=== PATIENT | female | born 1935 | race Caucasian/White ===

== ENCOUNTER 2017-12-28 08:36 | Emergency (ER) | payer MEDICARE ==
--- NOTE | 2017-12-28 10:02 | CT ---
CT BRAIN PERFORMED WITHOUT CONTRAST ENHANCEMENT: HISTORY: The patient fell out of bed and hit head. FINDINGS: There is generalized ventricular and sulcal prominence. There are no signs of intracerebral hemorrha ge or extraaxial fluid collections. The mastoid air cells and visualized sinuses are clear. IMPRESSION: No acute intracranial abnormalities. POS: [facility]
--- NOTE | 2017-12-28 10:06 | CT ---
CT CERVICAL SPINE WITHOUT CONTRAST: HISTORY: Fell out of bed this morning and hit forehead. Neck pain. COMPARISON: None. TECHNIQUE: Multiple contiguous axial images were obtained in a CT of the cervical spine without contrast. Sagit jesus and coronal reformats were performed. FINDINGS: The vertebral bodies demonstrate normal height and alignment without fracture or subluxation. Mild d egenerative changes are seen. No prevertebral soft tissue swelling is seen. The posterior facets are well aligned. Normal alignment of the skull base with the cervical spine is seen. IMPRESSION: No evidence of acute osseous abnormality of the cervical spine. POS: [facility]
--- NOTE | 2017-12-28 10:08 | CT ---
CT THORACIC SPINE WITHOUT CONTRAST: HISTORY: Fell out of bed and hit forehead. Back pain. COMPARISON: None. TECHNIQUE: Multiple contiguous axial images were obtained in a CT of the thoracic spine without contrast. Sagit jesus and coronal reformats were performed. FINDINGS: Diffuse osteopenia is seen. There is wedging of some of the mid thoracic and vertebral bodies, which is likely chronic. No acute fracture or subluxation is seen of any of the thoracic vertebral bodies . Atherosclerotic calcifications are seen in the aorta. There is a large hiatal hernia. The other pre vertebral and paraspinal soft tissues are unremarkable. IMPRESSION: No evidence of acute osseous abnormality of the thoracic spine. POS: [facility]
--- NOTE | 2017-12-28 10:09 | RAD ---
CHEST ONE VIEW: HISTORY: Fell out of bed. Injury. COMPARISON: Radiograph from 2011. FINDINGS: The lungs are clear. No pneumothorax or effusion. The cardiac silhouette and mediastinal contour ar e within normal limits. Please see CT spine for further findings. IMPRESSION: No acute intrathoracic abnormality. POS: [facility]
== END 2017-12-28 10:25 | disposition home or self-care (01) ==
LOC: MADERS 08:36
DX: S16.1XXA Strain of muscle, fascia and tendon at neck level, initial encounter (principal); S29.012A Strain of muscle and tendon of back wall of thorax, initial encounter; I25.10 Atherosclerotic heart disease of native coronary artery without angina pectoris; I10 Essential (primary) hypertension; Z79.899 Other long term (current) drug therapy; Z79.82 Long term (current) use of aspirin; W06.XXXA Fall from bed, initial encounter
CPT/HCPCS: 70450; 71045; 72125; 72128

== ENCOUNTER 2019-05-11 11:23 | Emergency (ER) | payer MEDICARE ==
--- NOTE | 2019-05-11 12:34 | CT ---
CT Brain WO Con History: Fall. Head injury. Comparison: 12/28/2017. Findings: There is no evidence of acute intracranial hemorrhage or infarct. The ventricles appear nor mal in size, shape and position. Diffuse cortical atrophy and mild chronic ischemic small vessel disease. There is no mass effect or shift of midline structures. Visualized paranasal sinuses remain well-aerated. Impression: Chronic-type findings are stable. No acute intracranial abnormalities are demonstrated.
--- NOTE | 2019-05-11 12:37 | CT ---
CT Cervical Spine WO Con History: Neck injury Comparison: 12/28/2017. Findings: Vertebral body heights and alignment are maintained. Multilevel disc space narrowing and os teophytosis. Cervicothoracic junction is intact. No acute fracture or dislocation. Calcification at the carotid bifurcations and aortic arch. Impression: Degenerative changes cervical spine. No acute osseous abnormalities are demonstrated. Atherosclerosis.
--- NOTE | 2019-05-11 12:42 | CT ---
CT lumbar spine noncontrast HISTORY: Fall. Back injury. FINDINGS: Very mild physiologic wedging of the T12 vertebral body. Chronic appearance. There is parti al sacralization of the L5 segment. No acute fracture or dislocation evident. There is disc space narrowing and gas disc phenomenon at ea ch level. Osteophytosis of the vertebral bodies and facets. Minimal degenerative retrolisthesis at the L1-2 and L2-3 levels. No severe central canal stenoses evident. Significant foraminal stenoses ev ident bilaterally at the L3-4 and L4-5 levels. Calcification within the arterial structures. Osseous structures are demineralized. Hiatal hernia par tially visualized. Diverticula of the colon without evidence of inflammation. IMPRESSION: Degenerative changes lumbar spine without acute osseous abnormality evident. Foraminal stenoses at the L3-4 and L4-5 levels. Clinical correlation regarding the L3 and L4 dermatom e is required. Osteoporosis. Atherosclerosis. Hiatal hernia. Diverticulosis.
--- NOTE | 2019-05-11 12:45 | CT ---
CT pelvis noncontrast HISTORY: Pelvic injury. FINDINGS: Sacral and iliac are intact. Hips unremarkable. No acute fracture or dislocation. Mild dege nerative changes throughout. More prominent degenerative changes lower lumbar spine better detailed on dedicated CT lumbar spine exam. Diverticula arise from the colon without evidence of inflammation. IMPRESSION: No acute osseous abnormalities are demonstrated. Diverticulosis.
== END 2019-05-11 13:13 | disposition home or self-care (01) ==
LOC: MADERS 11:23
DX: S39.012A Strain of muscle, fascia and tendon of lower back, initial encounter (principal); S16.1XXA Strain of muscle, fascia and tendon at neck level, initial encounter; S00.03XA Contusion of scalp, initial encounter; I10 Essential (primary) hypertension; I25.10 Atherosclerotic heart disease of native coronary artery without angina pectoris; Z91.81 History of falling; Z79.899 Other long term (current) drug therapy; Z79.82 Long term (current) use of aspirin; W18.30XA Fall on same level, unspecified, initial encounter
CPT/HCPCS: 70450; 72125; 72131; 72192

== ENCOUNTER 2019-07-03 09:34 | Emergency (ER) | payer MEDICARE ==
[2019-07-03 10:29] LABS: #Lymphocytes 1.4 thou/uL (1.20-3.40); #Monocytes 0.3 thou/uL (0.11-0.59); #Neutrophils 2.7 thou/uL (1.40-6.50); %Basophils 0.9 % (0.0-1.0); %Eosinophils 0.3 % (0.0-10.0); %Lymphocytes 31.2 % (21.0-51.0); %Monocytes 5.9 % (0.0-10.0); %Neutrophils 61.6 % (42.0-75.0); Hemoglobin 11.3 g/dL (12.0-16.0); Mean Corpuscular HGB CONC 31.5 g/dL (32.0-36.0); Mean Corpuscular Hemoglobin 30.6 pg (27.0-31.0); Mean Corpuscular Volume 97.2 fL (78.0-98.0); Mean Platelet Volume 5.2 fL (7.4-10.4); Platelet Count 213 thou/uL (130-400); RBC Distribution Width 13.2 % (11.5-14.5); White Blood Cell (WBC) Count 4.5 thou/uL (4.8-10.8)
[2019-07-03 10:43] LABS: ALT (SGPT) 12 U/L (8-55); AST (SGOT) 14 U/L (5-34); Albumin 3.8 g/dL (3.4-4.8); Alkaline Phosphatase 55 U/L (40-110); Anion Gap 13 mmol/L (10-20); BUN (Urea Nitrogen) 17 mg/dL (9.8-20.1); Bilirubin, Total 0.6 mg/dL (0.2-1.2); Calc. Creatinine Clearance 0 mL/min (70-130); Calcium 8.6 mg/dL (7.8-10.44); Carbon Dioxide 24 mmol/L (23-31); Chloride 108 mmol/L (98-107); Estimated GFR-MDRD 65; Globulin 2.3 g/dL (2.4-3.5); Glucose 107 mg/dL (83-110); Potassium 3.9 mmol/L (3.5-5.1); Protein, Total 6.1 g/dL (6.0-8.3); Sodium 141 mmol/L (136-145)
== END 2019-07-03 12:00 | disposition home or self-care (01) ==
LOC: MADERS 09:34
DX: I10 Essential (primary) hypertension (principal); R11.0 Nausea; I25.10 Atherosclerotic heart disease of native coronary artery without angina pectoris; Z79.82 Long term (current) use of aspirin; Z79.899 Other long term (current) drug therapy
CPT/HCPCS: 36415; 80053; 84484; 85025; 93005

== ENCOUNTER 2019-11-09 05:07 | Emergency (ER) | payer MEDICARE ==
[2019-11-09] MEDS ORDERED: Aspirin Chewable 81 MG TAB ONE (06:57)
[2019-11-09 07:04] LABS: #Basophils 0.1 thou/uL (0.0-0.2); #Lymphocytes 2.3 thou/uL (1.20-3.40); #Monocytes 0.5 thou/uL (0.11-0.59); #Neutrophils 3.5 thou/uL (1.40-6.50); %Eosinophils 0.4 % (0.0-10.0); %Lymphocytes 36.4 % (21.0-51.0); %Monocytes 7.8 % (0.0-10.0); %Neutrophils 54.3 % (42.0-75.0); Bilirubin Small (Negative); Blood, Urine Negative (Negative); Clarity Clear (Clear); Glucose, Urine (Dipstick) Negative (Negative); Ketone, Urine Negative (Negative); Leukocyte Negative (Negative); Mean Corpuscular HGB CONC 31.1 g/dL (32.0-36.0); Mean Corpuscular Hemoglobin 31.1 pg (27.0-31.0); Mean Platelet Volume 5.8 fL (7.4-10.4); Nitrite Negative (Negative); Platelet Count 209 thou/uL (130-400); Protein, Urine (Dipstick) 30 mg/dL (Neg-Trace); RBC Distribution Width 13.4 % (11.5-14.5); Red Blood Cell (RBC) Count 3.55 mill/uL (4.20-5.40); White Blood Cell (WBC) Count 6.3 thou/uL (4.8-10.8)
[2019-11-09 07:12] LABS: Specific Gravity, Urine 1.037 (1.002-1.036)
[2019-11-09 07:21] LABS: ALT (SGPT) 13 U/L (8-55); AST (SGOT) 14 U/L (5-34); Albumin 3.8 g/dL (3.4-4.8); Alkaline Phosphatase 42 U/L (40-110); Anion Gap 14 mmol/L (10-20); BUN (Urea Nitrogen) 29 mg/dL (9.8-20.1); Bilirubin, Total 0.6 mg/dL (0.2-1.2); Calc. Creatinine Clearance 0 mL/min (70-130); Calcium 8.4 mg/dL (7.8-10.44); Carbon Dioxide 22 mmol/L (23-31); Chloride 108 mmol/L (98-107); Estimated GFR-MDRD 53; Globulin 2.3 g/dL (2.4-3.5); Glucose 113 mg/dL (83-110); Potassium 4.2 mmol/L (3.5-5.1); Protein, Total 6.1 g/dL (6.0-8.3); Sodium 140 mmol/L (136-145)
[2019-11-09 07:27] LABS: Bacteria/HPF Rare-Few HPF (None Seen); RBC/HPF 0-3 HPF (0-3); Squamous Epithelial 0-3 HPF (0-3)
--- NOTE | 2019-11-09 07:47 | RAD ---
XR Chest 1 View Portable HISTORY: Chest pain, shortness of breath COMPARISON: 12/28/2017 FINDINGS: The heart size is stable. The lungs are well expanded without focal areas of consolidation, pneumothorax or pleural effusions. There are plates of linear atelectasis versus scarring in the left lung. Postop changes of bilateral humeral head prostheses are seen.
== END 2019-11-09 08:19 | disposition short-term general hospital (02) ==
LOC: MADERS 05:07
DX: I24.9 Acute ischemic heart disease, unspecified (principal); E87.70 Fluid overload, unspecified; R00.1 Bradycardia, unspecified; R53.1 Weakness; I25.10 Atherosclerotic heart disease of native coronary artery without angina pectoris; I10 Essential (primary) hypertension; Z79.899 Other long term (current) drug therapy; Z79.82 Long term (current) use of aspirin
CPT/HCPCS: 71045; 80053; 81003; 81015; 83880; 84443; 84484; 85025; 93005